=== PATIENT | female | born 1955 | race Caucasian/White ===

== ENCOUNTER 2023-09-02 09:48 | Observation (INO) | payer MEDICARE ==
[2023-09-02 10:27] LABS: #Basophils 0.06 10x3/uL (0.0-0.2); %Basophils 0.6 % (0.0-1.0); %Eosinophils 4.8 % (0.0-10.0); %Lymphocytes 10.8 % (21.0-51.0); %Monocytes 4.4 % (0.0-10.0); %Neutrophils 79.2 % (42.0-75.0); Hematocrit 42.8 % (36.0-47.0); Mean Corpuscular Hemoglobin 33.3 pg (27.0-31.0); Mean Corpuscular Volume 95.1 fL (78.0-98.0); Mean Platelet Volume 8.8 fL (7.4-10.4); Platelet Count 372 10x3/uL (130-400); RBC Distribution Width 12.9 % (11.5-14.5)
[2023-09-02] MEDS ORDERED: Ipratropium/Albuterol 3 ML NEB ONE (10:43)
[2023-09-02] MEDS ORDERED: methylPREDNISolone Sod Succ/PF 125 MG/2 ML VIAL ONE (10:43)
[2023-09-02] MEDS ORDERED: Magnesium 2 GM/50 ML BAG (IN WATER) ONE (10:43)
[2023-09-02 11:17] LABS: Albumin 3.9 g/dL (3.4-4.8); Chloride 99 mmol/L (98-107); Potassium 4.2 mmol/L (3.5-5.1); Sodium 134 mmol/L (136-145)
[2023-09-02 11:18] LABS: Calcium 9.7 mg/dL (7.8-10.44); Glucose 92 mg/dL (80-115)
[2023-09-02 11:19] LABS: Globulin 3.5 g/dL (2.4-3.5); Protein, Total 7.4 g/dL (5.8-8.1)
[2023-09-02 11:20] LABS: Anion Gap 15 mmol/L (10-20); Carbon Dioxide 24 mmol/L (23-31)
[2023-09-02 11:21] LABS: Alkaline Phosphatase 80 U/L (40-110); Bilirubin, Total 0.4 mg/dL (0.2-1.2); Troponin I 0.031 ng/mL (< 0.028)
[2023-09-02 11:22] LABS: Calc. Creatinine Clearance 0 mL/min (70-130); Estimated GFR 96
[2023-09-02 11:23] LABS: BUN (Urea Nitrogen) 7 mg/dL (9.8-20.1)
[2023-09-02 11:24] LABS: ALT (SGPT) 13 U/L (8-55); AST (SGOT) 16 U/L (5-34)
[2023-09-02] MEDS ORDERED: Iopamidol-370 76% 500 ML MDV (1 ML CHARGE) ONE (11:25)
[2023-09-02 14:04] LABS: Troponin I 0.057 ng/mL (< 0.028)
[2023-09-02] MEDS ORDERED: Aspirin Chewable 81 MG TAB ONE (14:28)
[2023-09-02] MEDS ORDERED: Famotidine/PF 20 mg/2ml Vial ONE (14:28)
[2023-09-02] MEDS ORDERED: diphenhydrAMINE 50 MG/ML VIAL ONE (14:28)
[2023-09-02] MEDS ORDERED: Acetaminophen 325 MG TAB PO PRN (17:04)
[2023-09-02] MEDS ORDERED: Ondansetron PF 4 MG/2 ML Vial IVP PRN (17:04)
[2023-09-02 17:53] LABS: Troponin I 0.059 ng/mL (< 0.028)
[2023-09-02 21:30] VITALS: BMI 19.6
[2023-09-02] MEDS: Atorvastatin Calcium 40 MG TAB PO SCH (22:21)
[2023-09-02] MEDS: Metoprolol Tartrate 25 MG TAB PO SCH (22:21)
[2023-09-02] MEDS: methylPREDNISolone Sod Succ 40 MG VIAL IVP SCH (22:21)
[2023-09-02] MEDS: Ipratropium/Albuterol 3 ML NEB NEB SCH (23:29)
[2023-09-03 04:52] LABS: #Basophils Less than 0.03 10x3/uL (0.0-0.2); #Eosinphils Less than 0.03 10x3/uL (0.0-0.7); %Basophils 0.2 % (0.0-1.0); %Lymphocytes 7.9 % (21.0-51.0); %Monocytes 1.7 % (0.0-10.0); %Neutrophils 89.7 % (42.0-75.0); Hematocrit 40.9 % (36.0-47.0); Hemoglobin 14.1 g/dL (12.0-16.0); Mean Corpuscular HGB CONC 34.5 g/dL (32.0-36.0); Mean Corpuscular Hemoglobin 32.6 pg (27.0-31.0); Mean Corpuscular Volume 94.5 fL (78.0-98.0); Mean Platelet Volume 8.6 fL (7.4-10.4); Platelet Count 365 10x3/uL (130-400); RBC Distribution Width 12.9 % (11.5-14.5); Red Blood Cell (RBC) Count 4.33 mill/uL (4.20-5.40)
[2023-09-03 05:21] LABS: Anion Gap 14 mmol/L (10-20); BUN (Urea Nitrogen) 11 mg/dL (9.8-20.1); Calc. Creatinine Clearance 54 mL/min (70-130); Calcium 9.4 mg/dL (7.8-10.44); Carbon Dioxide 22 mmol/L (23-31); Chloride 99 mmol/L (98-107); Estimated GFR 84; Glucose 131 mg/dL (80-115); Potassium 5.1 mmol/L (3.5-5.1); Sodium 130 mmol/L (136-145)
[2023-09-03] MEDS: cefTRIAXone\\ROCEPHIN 1 GM in Sodium Chloride 0.9% 100 ML IVPB SCH (06:26)
[2023-09-03 08:56] VITALS: TEMP 97.9
[2023-09-03] MEDS: Enoxaparin 40 MG (0.4 mL) SYRINGE SC SCH (09:04)
[2023-09-03] MEDS: Aspirin 81 mg Enteric Coated Tablet PO SCH (09:04)
[2023-09-03 11:21] VITALS: BP 122/59
[2023-09-03] MEDS: Losartan 25 MG TAB PO SCH (11:22)
[2023-09-03] MEDS: Benzonatate 100 MG CAP PO PRN (11:22)
[2023-09-03] MEDS ORDERED: Ipratropium Bromide 2.5 ml Neb NEB SCH (13:00)
[2023-09-03] MEDS ORDERED: Mometasone 200 MCG/Formoterol 5 MCG 120 PUFF INHALER INH SCH (18:30)
[2023-09-04] MEDS ORDERED: Losartan 25 MG TAB PO SCH (09:00)
== END 2023-09-03 13:55 | disposition home or self-care (01) ==
LOC: ERS 09:48 → ERHOLD 17:22 → 2SW 19:55
PROVIDERS: ADMIT Internal Medicine; ATTEND Internal Medicine
DX: J44.1 Chronic obstructive pulmonary disease with (acute) exacerbation (principal); J98.01 Acute bronchospasm; R07.89 Other chest pain; R77.8 Other specified abnormalities of plasma proteins; I10 Essential (primary) hypertension; E78.5 Hyperlipidemia, unspecified; F17.210 Nicotine dependence, cigarettes, uncomplicated; F12.90 Cannabis use, unspecified, uncomplicated; Z91.041 Radiographic dye allergy status; Z79.82 Long term (current) use of aspirin
CPT/HCPCS: 36415; 36416; 71045; 71275; 80048; 80053; 83880; 84484; 85025; 93005; 94640; 96372; 96374; 96375; 96376; G0378; J1200; J1650; J2920; J2930; J3475; J7620; Q9967; S0028

== ENCOUNTER 2024-05-05 13:51 | Inpatient (IN) | payer MEDICARE ==
[2024-05-05] MEDS ORDERED: Ipratropium/Albuterol 3 ML NEB NEB PRN (15:10)
[2024-05-05] MEDS ORDERED: Ondansetron PF 4 MG/2 ML Vial IVP PRN (15:10)
[2024-05-05] MEDS ORDERED: Sodium Chloride 0.9% 100 ML ONE (15:57)
[2024-05-05] MEDS ORDERED: Azithromycin 250 MG TAB ONE (15:57)
[2024-05-05] MEDS ORDERED: cefTRIAXone (ROCEPHIN) 1 GM VIAL ONE (15:57)
[2024-05-05 16:01] LABS: Troponin I 0.028 ng/mL (< 0.028)
[2024-05-05] MEDS: cefTRIAXone\\ROCEPHIN 1 GM in Sodium Chloride 0.9% 100 ML IVPB SCH (16:05)
[2024-05-05] MEDS: Azithromycin 250 MG TAB PO SCH (16:05)
[2024-05-05] MEDS ORDERED: Acetaminophen 325 MG TAB ONE (16:46)
[2024-05-05] MEDS ORDERED: Metoprolol Tartrate 25 MG TAB ONE (16:57)
[2024-05-05] MEDS: Acetaminophen 325 MG TAB PO PRN (17:03)
[2024-05-05 18:21] LABS: Troponin I 0.042 ng/mL (< 0.028)
[2024-05-05] MEDS: Ipratropium/Albuterol 3 ML NEB NEB SCH (19:36)
[2024-05-05] MEDS: Budesonide 0.5 MG/2 ML NEB INH SCH (19:37)
[2024-05-05] MEDS: Lactated Ringer's 1,000 ML IV SCH (20:12)
[2024-05-05] MEDS: Metoprolol Tartrate 25 MG TAB PO SCH (20:17)
[2024-05-05 21:14] LABS: Troponin I 0.028 ng/mL (< 0.028)
[2024-05-05] MEDS ORDERED: hydrOXYzine 10 MG TAB PO PRN (21:16)
[2024-05-05] MEDS: Melatonin 3 MG TAB PO SCH (21:26)
[2024-05-05] MEDS: DULoxetine 30 MG CAP PO SCH (21:26)
[2024-05-05] MEDS: Labetalol HCl 100 MG/20 ML VIAL SLOW IVP PRN (22:06)
[2024-05-05 22:29] LABS: Actual Bicarbonate (HCO3a) 26.1 mEq/L (22-28); Base Excess (BEa) -2.8 mEq/L (-2.0 to +3.0); Carboxyhemoglobin (COHb) 0.3 gm% (0.0-3.0); Hematocrit-ABG 40 % (36.0-47.0); Hemoglobin (Hb) 13.7 g/dL (12.0-16.0); O2 Tension (PaO2), arterial 109.2 mmHg (> 80.0); Potassium - ABG Lab 4.21 mmol/L (3.70-5.30); pH, Arterial 7.225 (7.35-7.45)
[2024-05-05 22:30] LABS: CO2 Tension 64.4 mmHg (35.0-45.0); Puncture Site Right Radial artery
[2024-05-05] MEDS: Lorazepam 2 MG/ML VIAL SLOW IVP SCH (22:36)
[2024-05-05] MEDS ORDERED: Morphine 2 MG/ML VIAL SLOW IVP SCH (23:00)
[2024-05-05] MEDS ORDERED: Fentanyl BOLUS 250 ML IVPB PRN (23:15)
[2024-05-05] MEDS ORDERED: Morphine 2 MG/ML VIAL SLOW IVP PRN (23:15)
[2024-05-05] MEDS ORDERED: Ventilator Sedation Protocol 1 EACH FS SCH (23:15)
[2024-05-05] MEDS ORDERED: Propofol BOLUS 1,000 MG/100 ML VIAL IV PRN (23:15)
[2024-05-05] MEDS: Rocuronium Bromide 50 MG/5 ML VIAL IVP SCH (23:15)
[2024-05-05] MEDS: Etomidate 40 MG (20 mL) VIAL IVP SCH (23:15)
[2024-05-05] MEDS ORDERED: Rocuronium Bromide 10 MG/ML (10ML VIAL) ONE (23:16)
[2024-05-05] MEDS ORDERED: Etomidate 40 MG (20 mL) VIAL ONE (23:16)
[2024-05-05] MEDS: Propofol 1,000 MG/100 ML VIAL IV PRN (23:36)
[2024-05-06] MEDS: methylPREDNISolone Sod Succ 40 MG VIAL IVP SCH (00:29)
[2024-05-06 00:48] LABS: Actual Bicarbonate (HCO3a) 25.5 mEq/L (22-28); Base Excess (BEa) -5.2 mEq/L (-2.0 to +3.0); Calcium, Ionized (arterial) 1.22 mmol/L (1.12-1.30); Carboxyhemoglobin (COHb) 0.6 gm% (0.0-3.0); Hematocrit-ABG 41 % (36.0-47.0); O2 Tension (PaO2), arterial 71.4 mmHg (> 80.0); Potassium - ABG Lab 4.02 mmol/L (3.70-5.30)
[2024-05-06 00:49] LABS: ALV-art Gradient 117.925 mmHg (0-20); Puncture Site Right Brachial art
[2024-05-06] MEDS: Lorazepam 2 MG/ML VIAL SLOW IVP PRN (02:18)
[2024-05-06] MEDS: Fentanyl CADD 100 ML IV SCH (02:51)
[2024-05-06 03:21] LABS: #Basophils Less than 0.03 10x3/uL (0.0-0.2); #Eosinophils Less than 0.03 10x3/uL (0.0-0.7); %Basophils 0.1 % (0.0-1.0); %Eosinophils 0.1 % (0.0-10.0); %Lymphocytes 3.5 % (21.0-51.0); %Monocytes 3.5 % (0.0-10.0); %Neutrophils 92.3 % (42.0-75.0); Hematocrit 34.9 % (36.0-47.0); Hemoglobin 11.7 g/dL (12.0-16.0); Mean Corpuscular HGB CONC 33.5 g/dL (32.0-36.0); Mean Corpuscular Hemoglobin 32.6 pg (27.0-31.0); Mean Corpuscular Volume 97.2 fL (78.0-98.0); Mean Platelet Volume 8.7 fL (7.4-10.4); Platelet Count 243 10x3/uL (130-400); RBC Distribution Width 14.5 % (11.5-14.5); Red Blood Cell (RBC) Count 3.59 mill/uL (4.20-5.40)
[2024-05-06] MEDS: NOREPINEPHRINE 8 MG/250 ML-D5W 250 ML IVPB SCH (03:25)
[2024-05-06] MEDS: Vecuronium 10 MG VIAL IVP PRN (03:25)
[2024-05-06 03:35] LABS: Actual Bicarbonate (HCO3a) 26.4 mEq/L (22-28); Base Excess (BEa) -3.9 mEq/L (-2.0 to +3.0); Calcium, Ionized (arterial) 1.22 mmol/L (1.12-1.30); Carboxyhemoglobin (COHb) 0.6 gm% (0.0-3.0); Hematocrit-ABG 38 % (36.0-47.0); Hemoglobin (Hb) 12.9 g/dL (12.0-16.0); O2 Tension (PaO2), arterial 96.2 mmHg (> 80.0); Potassium - ABG Lab 4.19 mmol/L (3.70-5.30)
[2024-05-06 03:36] LABS: CO2 Tension 75.9 mmHg (35.0-45.0); Puncture Site Right Brachial art; pH, Arterial 7.159 (7.35-7.45)
[2024-05-06 03:37] LABS: ALV-art Gradient 165.425 mmHg (0-20)
[2024-05-06] MEDS: Albumin 25% 25 GM (100 mL) BOT IVPB SCH (03:41)
[2024-05-06 03:48] LABS: Phosphorus 4.4 mg/dL (2.3-4.7)
[2024-05-06 03:51] LABS: ALT (SGPT) 15 U/L (8-55); AST (SGOT) 29 U/L (5-34); Albumin 3.3 g/dL (3.4-4.8); Alkaline Phosphatase 72 U/L (40-110); Anion Gap 13 mmol/L (10-20); BUN (Urea Nitrogen) 12 mg/dL (9.8-20.1); Bilirubin, Total 0.6 mg/dL (0.2-1.2); Calc. Creatinine Clearance 66 mL/min (70-130); Calcium 8.3 mg/dL (7.8-10.44); Carbon Dioxide 25 mmol/L (23-31); Chloride 93 mmol/L (98-107); Estimated GFR 97; Globulin 3.4 g/dL (2.4-3.5); Glucose 172 mg/dL (80-115); Magnesium 2.3 mg/dL (1.6-2.6); Protein, Total 6.7 g/dL (5.8-8.1); Sodium 127 mmol/L (136-145)
[2024-05-06] MEDS: Vecuronium 10 MG VIAL ONE (05:14)
[2024-05-06 07:53] LABS: Actual Bicarbonate (HCO3a) 25.9 mEq/L (22-28); Base Excess (BEa) -2.7 mEq/L (-2.0 to +3.0); Calcium, Ionized (arterial) 1.18 mmol/L (1.12-1.30); Carboxyhemoglobin (COHb) 0.9 gm% (0.0-3.0); Hematocrit-ABG 36 % (36.0-47.0); Hemoglobin (Hb) 12.2 g/dL (12.0-16.0); Potassium - ABG Lab 4.02 mmol/L (3.70-5.30); pH, Arterial 7.227 (7.35-7.45)
[2024-05-06 07:54] LABS: CO2 Tension 63.8 mmHg (35.0-45.0); Puncture Site Left Radial artery
[2024-05-06] MEDS ORDERED: predniSONE 20 MG TAB PO SCH (08:00)
[2024-05-06] MEDS: Azithromycin 250 MG TAB PO SCH (08:59)
[2024-05-06] MEDS: Enoxaparin 30 MG (0.3 mL) SYRINGE SC SCH (08:59)
[2024-05-06] MEDS: Famotidine/PF 20 mg/2ml Vial SLOW IVP SCH ×2 (08:59→20:20)
[2024-05-06] MEDS ORDERED: DULoxetine 30 MG CAP PO SCH (09:00)
[2024-05-06] MEDS: Oseltamivir 75 MG CAP PO SCH (09:02)
[2024-05-06] MEDS: Ipratropium/Albuterol 3 ML NEB NEB SCH (10:33)
[2024-05-06] MEDS: Lactated Ringer's 1,000 ML IV SCH (11:58)
[2024-05-06] MEDS ORDERED: Acetaminophen 650 MG/20.3 ML UDCUP PO PRN (18:15)
[2024-05-06] MEDS: DULoxetine 30 MG CAP PER TUBE SCH (20:20)
[2024-05-06] MEDS: Oseltamivir 75 MG CAP PER TUBE SCH (20:21)
[2024-05-06] MEDS: Sterile Water 10 ML VIAL FS PRN (21:14)
[2024-05-07 05:39] LABS: ALT (SGPT) 13 U/L (8-55); AST (SGOT) 22 U/L (5-34); Albumin 3.5 g/dL (3.4-4.8); Alkaline Phosphatase 57 U/L (40-110); Anion Gap 16 mmol/L (10-20); BUN (Urea Nitrogen) 22 mg/dL (9.8-20.1); Bilirubin, Total 0.3 mg/dL (0.2-1.2); Calc. Creatinine Clearance 55 mL/min (70-130); Calcium 8.7 mg/dL (7.8-10.44); Carbon Dioxide 25 mmol/L (23-31); Chloride 96 mmol/L (98-107); Estimated GFR 87; Globulin 3.2 g/dL (2.4-3.5); Glucose 111 mg/dL (80-115); Magnesium 2.5 mg/dL (1.6-2.6); Protein, Total 6.7 g/dL (5.8-8.1); Sodium 132 mmol/L (136-145)
[2024-05-07 06:34] LABS: #Basophils Less than 0.03 10x3/uL (0.0-0.2); #Eosinophils Less than 0.03 10x3/uL (0.0-0.7); %Basophils 0.1 % (0.0-1.0); %Lymphocytes 6.3 % (21.0-51.0); %Monocytes 7.2 % (0.0-10.0); %Neutrophils 85.8 % (42.0-75.0); Hematocrit 39.2 % (36.0-47.0); Hemoglobin 12.5 g/dL (12.0-16.0); Mean Corpuscular HGB CONC 31.9 g/dL (32.0-36.0); Mean Corpuscular Hemoglobin 32.1 pg (27.0-31.0); Mean Corpuscular Volume 100.8 fL (78.0-98.0); Mean Platelet Volume 9.7 fL (7.4-10.4); Platelet Count 242 10x3/uL (130-400); RBC Distribution Width 15.1 % (11.5-14.5); Red Blood Cell (RBC) Count 3.89 mill/uL (4.20-5.40)
[2024-05-07 07:21] LABS: Base Excess (BEa) -1.6 mEq/L (-2.0 to +3.0); Calcium, Ionized (arterial) 1.21 mmol/L (1.12-1.30); Carboxyhemoglobin (COHb) 0.4 gm% (0.0-3.0); Hematocrit-ABG 36 % (36.0-47.0); Hemoglobin (Hb) 12.1 g/dL (12.0-16.0); O2 Tension (PaO2), arterial 100.5 mmHg (> 80.0); Potassium - ABG Lab 4.26 mmol/L (3.70-5.30); pH, Arterial 7.277 (7.35-7.45)
[2024-05-07 07:23] LABS: Puncture Site Left Radial artery
[2024-05-07] MEDS: Azithromycin 250 MG TAB PER TUBE SCH (08:29)
[2024-05-07] MEDS: Enoxaparin 40 MG (0.4 mL) SYRINGE SC SCH (08:29)
[2024-05-08 05:07] LABS: #Basophils Less than 0.03 10x3/uL (0.0-0.2); #Eosinophils Less than 0.03 10x3/uL (0.0-0.7); %Basophils 0.1 % (0.0-1.0); %Lymphocytes 3.6 % (21.0-51.0); %Monocytes 3.9 % (0.0-10.0); %Neutrophils 91.8 % (42.0-75.0); Hematocrit 34.4 % (36.0-47.0); Hemoglobin 11.3 g/dL (12.0-16.0); Mean Corpuscular HGB CONC 32.8 g/dL (32.0-36.0); Mean Corpuscular Hemoglobin 32.2 pg (27.0-31.0); Platelet Count 247 10x3/uL (130-400); RBC Distribution Width 15.4 % (11.5-14.5); Red Blood Cell (RBC) Count 3.51 mill/uL (4.20-5.40)
[2024-05-08 06:09] LABS: Anion Gap 8 mmol/L (10-20); BUN (Urea Nitrogen) 21 mg/dL (9.8-20.1); Calc. Creatinine Clearance 72 mL/min (70-130); Calcium 8.3 mg/dL (7.8-10.44); Carbon Dioxide 30 mmol/L (23-31); Chloride 99 mmol/L (98-107); Estimated GFR 99; Glucose 130 mg/dL (80-115); Potassium 4.5 mmol/L (3.5-5.1); Sodium 132 mmol/L (136-145)
[2024-05-08 07:22] LABS: Actual Bicarbonate (HCO3a) 28.9 mEq/L (22-28); Base Excess (BEa) 0.5 mEq/L (-2.0 to +3.0); CO2 Tension 65.7 mmHg (35.0-45.0); Calcium, Ionized (arterial) 1.22 mmol/L (1.12-1.30); Carboxyhemoglobin (COHb) 0.3 gm% (0.0-3.0); Hematocrit-ABG 36 % (36.0-47.0); Hemoglobin (Hb) 12.1 g/dL (12.0-16.0); O2 Tension (PaO2), arterial 102.7 mmHg (> 80.0); Potassium - ABG Lab 4.48 mmol/L (3.70-5.30); pH, Arterial 7.261 (7.35-7.45)
[2024-05-08 07:23] LABS: ALV-art Gradient 100.375 mmHg (0-20); Puncture Site Left Radial artery
[2024-05-08] MEDS ORDERED: Lidocaine 1% PF 5 ML VIAL ONE (12:55)
[2024-05-08] MEDS ORDERED: PROPOFOL 20 ML ONE (12:55)
[2024-05-09 07:55] LABS: Base Excess (BEa) 2.5 mEq/L (-2.0 to +3.0); Calcium, Ionized (arterial) 1.23 mmol/L (1.12-1.30); Carboxyhemoglobin (COHb) 0.2 gm% (0.0-3.0); Hematocrit-ABG 34 % (36.0-47.0); Hemoglobin (Hb) 11.6 g/dL (12.0-16.0); O2 Tension (PaO2), arterial 97.6 mmHg (> 80.0); Potassium - ABG Lab 4.91 mmol/L (3.70-5.30); pH, Arterial 7.268 (7.35-7.45)
[2024-05-09 07:57] LABS: CO2 Tension 69.4 mmHg (35.0-45.0)
[2024-05-09 07:58] LABS: Puncture Site Left Radial artery
[2024-05-10 04:08] LABS: #Basophils Less than 0.03 10x3/uL (0.0-0.2); #Eosinophils Less than 0.03 10x3/uL (0.0-0.7); %Basophils 0.1 % (0.0-1.0); %Monocytes 8.6 % (0.0-10.0); %Neutrophils 80.5 % (42.0-75.0); Hematocrit 31.1 % (36.0-47.0); Hemoglobin 10.4 g/dL (12.0-16.0); Mean Corpuscular HGB CONC 33.4 g/dL (32.0-36.0); Mean Corpuscular Volume 95.7 fL (78.0-98.0); Mean Platelet Volume 9.1 fL (7.4-10.4); Platelet Count 217 10x3/uL (130-400); RBC Distribution Width 15.5 % (11.5-14.5); Red Blood Cell (RBC) Count 3.25 mill/uL (4.20-5.40)
[2024-05-10 04:46] LABS: Anion Gap 10 mmol/L (10-20); BUN (Urea Nitrogen) 31 mg/dL (9.8-20.1); Calc. Creatinine Clearance 87 mL/min (70-130); Calcium 8.3 mg/dL (7.8-10.44); Carbon Dioxide 30 mmol/L (23-31); Chloride 101 mmol/L (98-107); Estimated GFR 103; Glucose 129 mg/dL (80-115); Potassium 4.7 mmol/L (3.5-5.1); Sodium 136 mmol/L (136-145)
[2024-05-10] MEDS: hydrALAZINE 20 MG/ML VIAL SLOW IVP PRN (10:16)
[2024-05-10] MEDS: Dexmedetomidine In 0.9 % NaCl 100 ML IV SCH (12:54)
[2024-05-10 13:29] LABS: CO2 Tension 76.7 mmHg (35.0-45.0)
[2024-05-10] MEDS: Metoprolol Tartrate 25 MG TAB PER TUBE SCH (21:23)
[2024-05-11] MEDS: Haloperidol Lactate 5 MG/ML VIAL IM SCH (09:34)
[2024-05-11] MEDS: Hydrochlorothiazide 25 MG TAB PER TUBE SCH (13:52)
[2024-05-12] MEDS: Hydrochlorothiazide 25 MG TAB PER TUBE SCH (08:10)
[2024-05-12 08:29] LABS: #Basophils Less than 0.03 10x3/uL (0.0-0.2); #Eosinophils Less than 0.03 10x3/uL (0.0-0.7); %Basophils 0.2 % (0.0-1.0); %Eosinophils 0.1 % (0.0-10.0); %Lymphocytes 12.5 % (21.0-51.0); %Neutrophils 77.3 % (42.0-75.0); Hematocrit 34.2 % (36.0-47.0); Hemoglobin 11.7 g/dL (12.0-16.0); Mean Corpuscular HGB CONC 34.2 g/dL (32.0-36.0); Mean Corpuscular Hemoglobin 32.2 pg (27.0-31.0); Mean Corpuscular Volume 94.2 fL (78.0-98.0); Mean Platelet Volume 9.6 fL (7.4-10.4); Platelet Count 240 10x3/uL (130-400); RBC Distribution Width 14.8 % (11.5-14.5); Red Blood Cell (RBC) Count 3.63 mill/uL (4.20-5.40)
[2024-05-12 08:47] LABS: ALT (SGPT) 21 U/L (8-55); AST (SGOT) 24 U/L (5-34); Albumin 2.1 g/dL (3.4-4.8); Alkaline Phosphatase 34 U/L (40-110); Anion Gap 8 mmol/L (10-20); BUN (Urea Nitrogen) 25 mg/dL (9.8-20.1); Bilirubin, Total 0.2 mg/dL (0.2-1.2); Calc. Creatinine Clearance 210 mL/min (70-130); Calcium 8.2 mg/dL (7.8-10.44); Carbon Dioxide 30 mmol/L (23-31); Chloride 97 mmol/L (98-107); Estimated GFR 105; Globulin 3.1 g/dL (2.4-3.5); Glucose 108 mg/dL (80-115); Potassium 4.2 mmol/L (3.5-5.1); Protein, Total 5.2 g/dL (5.8-8.1); Sodium 131 mmol/L (136-145)
[2024-05-12] MEDS: Lactated Ringer's 1,000 ML IV SCH (11:03)
[2024-05-12] MEDS: Ipratropium/Albuterol 3 ML NEB NEB SCH (14:47)
[2024-05-12] MEDS: Dexmedetomidine In 0.9 % NaCl 100 ML IVPB SCH (17:25)
[2024-05-12] MEDS: Acetaminophen 650 MG/20.3 ML UDCUP PER TUBE PRN (20:42)
[2024-05-12] MEDS: hydrOXYzine 10 MG TAB PER TUBE PRN (20:42)
[2024-05-12] MEDS: Famotidine 20 MG TAB PO SCH (20:42)
[2024-05-13 04:23] LABS: #Basophils Less than 0.03 10x3/uL (0.0-0.2); #Eosinophils Less than 0.03 10x3/uL (0.0-0.7); %Basophils 0.1 % (0.0-1.0); %Lymphocytes 7.6 % (21.0-51.0); %Monocytes 4.1 % (0.0-10.0); %Neutrophils 87.6 % (42.0-75.0); Hematocrit 35.4 % (36.0-47.0); Hemoglobin 12.4 g/dL (12.0-16.0); Mean Corpuscular Hemoglobin 32.2 pg (27.0-31.0); Mean Corpuscular Volume 91.9 fL (78.0-98.0); Mean Platelet Volume 9.4 fL (7.4-10.4); Platelet Count 328 10x3/uL (130-400); RBC Distribution Width 14.7 % (11.5-14.5); Red Blood Cell (RBC) Count 3.85 mill/uL (4.20-5.40)
[2024-05-13 04:52] LABS: ALT (SGPT) 24 U/L (8-55); AST (SGOT) 26 U/L (5-34); Albumin 2.4 g/dL (3.4-4.8); Alkaline Phosphatase 43 U/L (40-110); Anion Gap 11 mmol/L (10-20); BUN (Urea Nitrogen) 23 mg/dL (9.8-20.1); Bilirubin, Total 0.5 mg/dL (0.2-1.2); Calc. Creatinine Clearance 201 mL/min (70-130); Calcium 8.3 mg/dL (7.8-10.44); Carbon Dioxide 30 mmol/L (23-31); Chloride 96 mmol/L (98-107); Estimated GFR 104; Glucose 93 mg/dL (80-115); Protein, Total 5.4 g/dL (5.8-8.1); Sodium 133 mmol/L (136-145)
[2024-05-13] MEDS: Ketorolac Tromethamine 30 MG (1 mL) VIAL IVP SCH (05:35)
[2024-05-13] MEDS: methylPREDNISolone Sod Succ 40 MG VIAL IVP SCH (11:32)
[2024-05-14 06:02] LABS: #Basophils 0.03 10x3/uL (0.0-0.2); #Eosinophils Less than 0.03 10x3/uL (0.0-0.7); %Basophils 0.2 % (0.0-1.0); %Eosinophils 0.1 % (0.0-10.0); %Lymphocytes 5.7 % (21.0-51.0); %Monocytes 6.4 % (0.0-10.0); %Neutrophils 86.3 % (42.0-75.0); Hematocrit 35.1 % (36.0-47.0); Mean Corpuscular HGB CONC 34.2 g/dL (32.0-36.0); Mean Corpuscular Volume 96.4 fL (78.0-98.0); Mean Platelet Volume 9.2 fL (7.4-10.4); Platelet Count 261 10x3/uL (130-400); RBC Distribution Width 14.5 % (11.5-14.5); Red Blood Cell (RBC) Count 3.64 mill/uL (4.20-5.40)
[2024-05-14 06:21] LABS: ALT (SGPT) 24 U/L (8-55); AST (SGOT) 23 U/L (5-34); Albumin 2.2 g/dL (3.4-4.8); Alkaline Phosphatase 38 U/L (40-110); Anion Gap 12 mmol/L (10-20); BUN (Urea Nitrogen) 29 mg/dL (9.8-20.1); Bilirubin, Total 0.6 mg/dL (0.2-1.2); Calc. Creatinine Clearance 120 mL/min (70-130); Calcium 7.9 mg/dL (7.8-10.44); Carbon Dioxide 25 mmol/L (23-31); Chloride 100 mmol/L (98-107); Estimated GFR 105; Globulin 2.8 g/dL (2.4-3.5); Glucose 108 mg/dL (80-115); Potassium 3.9 mmol/L (3.5-5.1); Sodium 133 mmol/L (136-145)
[2024-05-14] MEDS ORDERED: Lactated Ringer's 1,000 ML IV SCH (06:48)
[2024-05-14] MEDS: Famotidine/PF 20 mg/2ml Vial SLOW IVP SCH (08:43)
[2024-05-14] MEDS: Dextrose 5 % And 0.9 % NaCl 1,000 ML IV SCH (08:52)
[2024-05-14] MEDS: Labetalol HCl 100 MG/20 ML VIAL SLOW IVP PRN (10:43)
[2024-05-14] MEDS: Morphine 2 MG/ML VIAL SLOW IVP PRN (12:24)
[2024-05-15] MEDS: Metoprolol Tartrate 5 MG (5 mL) VIAL IVP SCH (06:17)
[2024-05-15 08:54] LABS: #Basophils 0.03 10x3/uL (0.0-0.2); #Eosinophils Less than 0.03 10x3/uL (0.0-0.7); %Basophils 0.2 % (0.0-1.0); %Lymphocytes 1.7 % (21.0-51.0); %Monocytes 4.8 % (0.0-10.0); %Neutrophils 92.6 % (42.0-75.0); Hematocrit 35.8 % (36.0-47.0); Hemoglobin 11.8 g/dL (12.0-16.0); Mean Corpuscular Hemoglobin 31.9 pg (27.0-31.0); Mean Corpuscular Volume 96.8 fL (78.0-98.0); Mean Platelet Volume 9.1 fL (7.4-10.4); Platelet Count 318 10x3/uL (130-400); RBC Distribution Width 14.5 % (11.5-14.5)
[2024-05-15 09:20] LABS: ALT (SGPT) 46 U/L (8-55); AST (SGOT) 44 U/L (5-34); Albumin 2.6 g/dL (3.4-4.8); Alkaline Phosphatase 59 U/L (40-110); Anion Gap 12 mmol/L (10-20); BUN (Urea Nitrogen) 27 mg/dL (9.8-20.1); Bilirubin, Total 0.6 mg/dL (0.2-1.2); Calc. Creatinine Clearance 112 mL/min (70-130); Calcium 7.8 mg/dL (7.8-10.44); Carbon Dioxide 24 mmol/L (23-31); Chloride 104 mmol/L (98-107); Estimated GFR 103; Globulin 2.9 g/dL (2.4-3.5); Glucose 159 mg/dL (80-115); Potassium 3.6 mmol/L (3.5-5.1); Protein, Total 5.5 g/dL (5.8-8.1); Sodium 136 mmol/L (136-145)
[2024-05-15] MEDS: cloNIDine 0.2mg/24 Hour PATCH TD SCH (10:04)
[2024-05-15] MEDS: Labetalol HCl 100 MG/20 ML VIAL SLOW IVP PRN (11:41)
[2024-05-15] MEDS: niCARdipine 25 MG in Sodium Chloride 0.9% 250 ML 250 ML IVPB SCH (14:45)
[2024-05-15] MEDS: hydrOXYzine 25 MG TAB PER TUBE PRN (15:13)
[2024-05-15] MEDS: methylPREDNISolone Sod Succ 40 MG VIAL IVP SCH (21:13)
[2024-05-15] MEDS: Amlodipine 5 MG TAB PO SCH (22:11)
[2024-05-15] MEDS: ALPRAZolam 0.25 MG TAB PO PRN (22:11)
[2024-05-16] MEDS: Glycopyrrolate 0.4 MG/ 2 ML VIAL SLOW IVP PRN (00:46)
[2024-05-16] MEDS: Scopolamine 1 mg/72 hour Patch TD SCH (00:46)
[2024-05-16 05:14] LABS: #Basophils 0.03 10x3/uL (0.0-0.2); #Eosinophils Less than 0.03 10x3/uL (0.0-0.7); %Basophils 0.1 % (0.0-1.0); %Lymphocytes 1.2 % (21.0-51.0); %Monocytes 6.1 % (0.0-10.0); %Neutrophils 91.8 % (42.0-75.0); Hematocrit 37.1 % (36.0-47.0); Hemoglobin 12.7 g/dL (12.0-16.0); Mean Corpuscular HGB CONC 34.2 g/dL (32.0-36.0); Mean Corpuscular Hemoglobin 32.5 pg (27.0-31.0); Mean Corpuscular Volume 94.9 fL (78.0-98.0); Mean Platelet Volume 9.9 fL (7.4-10.4); Platelet Count 287 10x3/uL (130-400); RBC Distribution Width 14.6 % (11.5-14.5); Red Blood Cell (RBC) Count 3.91 mill/uL (4.20-5.40)
[2024-05-16 05:16] LABS: ALT (SGPT) 42 U/L (8-55); AST (SGOT) 24 U/L (5-34); Albumin 2.8 g/dL (3.4-4.8); Alkaline Phosphatase 60 U/L (40-110); Anion Gap 12 mmol/L (10-20); BUN (Urea Nitrogen) 21 mg/dL (9.8-20.1); Bilirubin, Total 0.6 mg/dL (0.2-1.2); Calc. Creatinine Clearance 128 mL/min (70-130); Calcium 8.3 mg/dL (7.8-10.44); Carbon Dioxide 26 mmol/L (23-31); Chloride 104 mmol/L (98-107); Estimated GFR 106; Globulin 3.2 g/dL (2.4-3.5); Glucose 168 mg/dL (80-115); Potassium 3.1 mmol/L (3.5-5.1); Sodium 139 mmol/L (136-145)
[2024-05-16] MEDS ORDERED: Propofol BOLUS 1,000 MG/100 ML VIAL IV PRN (06:45)
[2024-05-16] MEDS ORDERED: Fentanyl BOLUS 250 ML IVPB PRN (06:45)
[2024-05-16] MEDS ORDERED: Morphine 2 MG/ML VIAL SLOW IVP PRN (06:45)
[2024-05-16] MEDS ORDERED: Fentanyl CADD 100 ML IV SCH (06:45)
[2024-05-16] MEDS ORDERED: DISCONTINUE PREVIOUS NARCOTIC PAIN MEDICATIONS AND BENZODIAZEPINES FS SCH (06:45)
[2024-05-16] MEDS ORDERED: Ventilator Sedation Protocol 1 EACH FS SCH (06:45)
[2024-05-16] MEDS ORDERED: Lorazepam 2 MG/ML VIAL SLOW IVP PRN (06:45)
[2024-05-16] MEDS: Propofol 1,000 MG/100 ML VIAL IV PRN (06:51)
[2024-05-16 07:13] LABS: Actual Bicarbonate (HCO3a) 27.7 mEq/L (22-28); Base Excess (BEa) -0.7 mEq/L (-2.0 to +3.0); Calcium, Ionized (arterial) 1.17 mmol/L (1.12-1.30); Carboxyhemoglobin (COHb) 0.2 gm% (0.0-3.0); Hematocrit-ABG 36 % (36.0-47.0); Hemoglobin (Hb) 12.2 g/dL (12.0-16.0); O2 Tension (PaO2), arterial 125.6 mmHg (> 80.0); Potassium - ABG Lab 2.96 mmol/L (3.70-5.30); pH, Arterial 7.253 (7.35-7.45)
[2024-05-16 07:15] LABS: ALV-art Gradient 150.775 mmHg (0-20); CO2 Tension 64.1 mmHg (35.0-45.0); Puncture Site Left Radial artery
[2024-05-16] MEDS ORDERED: niCARdipine 25 MG in Sodium Chloride 0.9% 250 ML 250 ML IVPB SCH (07:15)
[2024-05-16 07:24] LABS: Magnesium 1.9 mg/dL (1.6-2.6)
[2024-05-16] MEDS: Potassium Chloride 20 MEQ in Premix 1 BAG IVPB SCH (07:50)
[2024-05-16] MEDS: Lactated Ringer's 1,000 ML IV SCH ×2 (07:50→08:47)
[2024-05-16] MEDS: methylPREDNISolone Sod Succ 40 MG VIAL IVP SCH ×3 (08:24→13:30)
[2024-05-16] MEDS: Magnesium 2 GM/50 ML(in water) 2 GM in Premix 1 BAG IVPB SCH (08:28)
[2024-05-16] MEDS: Amlodipine 5 MG TAB PO SCH (08:29)
[2024-05-16] MEDS: Piperacillin/Tazobactam 3.375 GM in Sodium Chloride 0.9% 100 ML IVPB SCH ×2 (10:34→13:29)
[2024-05-16] MEDS ORDERED: Senokot 8.6 MG TAB PO PRN (11:16)
[2024-05-16 11:23] VITALS: BMI 24.0
[2024-05-16] MEDS ORDERED: Polyethylene Glycol 3350 17 GM Packet PO SCH (11:30)
[2024-05-16] MEDS ORDERED: Pantoprazole 40 MG VIAL IVP SCH (11:30)
[2024-05-16] MEDS ORDERED: Piperacillin/Tazobactam 4.5 GM in Sodium Chloride 0.9% 100 ML IVPB SCH (12:00)
[2024-05-16] MEDS: Vecuronium 10 MG VIAL IVP PRN (12:12)
[2024-05-16] MEDS: NOREPINEPHRINE 8 MG/250 ML-D5W 250 ML IVPB SCH (14:45)
[2024-05-16] MEDS: Phenylephrine 40 MG/NS 250 ML 250 ML IVPB SCH (16:32)
[2024-05-16] MEDS: Furosemide 40 MG (4 mL) VIAL ONE (16:40)
[2024-05-16] MEDS: Furosemide 40 MG (4 mL) VIAL SLOW IVP SCH (16:40)
[2024-05-16] MEDS: Albumin 5% 500 ML ONE (16:58)
[2024-05-16] MEDS: Albumin 5% 25 GM (500 mL) BOT IVPB SCH ×2 (17:00→22:53)
[2024-05-16] MEDS: Vasopressin 20 UNITS in Sodium Chloride 0.9% 50 ML IV SCH (17:01)
[2024-05-16 17:02] LABS: Actual Bicarbonate (HCO3a) 22.6 mEq/L (22-28); Base Excess (BEa) -7.1 mEq/L (-2.0 to +3.0); Calcium, Ionized (arterial) 1.19 mmol/L (1.12-1.30); Carboxyhemoglobin (COHb) 0.7 gm% (0.0-3.0); Hematocrit-ABG 46 % (36.0-47.0); Hemoglobin (Hb) 15.5 g/dL (12.0-16.0); O2 Tension (PaO2), arterial 86.3 mmHg (> 80.0); Potassium - ABG Lab 3.38 mmol/L (3.70-5.30)
[2024-05-16 17:06] LABS: ALV-art Gradient 547.575 mmHg (0-20); CO2 Tension 63.3 mmHg (35.0-45.0); Puncture Site Left Radial artery
[2024-05-16] MEDS: Vancomycin 1.5 GRAM/300 ML BAG 1.5 GM in Premix 1 BAG IVPB SCH (18:20)
[2024-05-16] MEDS: Sodium Bicarbonate 150 MEQ in Dextrose 5% in Water 1,000 ML IV SCH (19:04)
[2024-05-16] MEDS ORDERED: Vancomycin 1.5 GM in Sodium Chloride 0.9% 250 ML 300 ML IVPB SCH (21:00)
[2024-05-16] MEDS ORDERED: Vancomycin (BATCH) 1.25 GM in Premix 1 BAG IVPB SCH (21:00)
[2024-05-16] MEDS: Furosemide 100 MG (10 mL) VIAL SLOW IVP SCH (22:01)
[2024-05-16 22:04] LABS: Actual Bicarbonate (HCO3a) 23.9 mEq/L (22-28); Base Excess (BEa) -7.4 mEq/L (-2.0 to +3.0); Calcium, Ionized (arterial) 1.17 mmol/L (1.12-1.30); Carboxyhemoglobin (COHb) 0.6 gm% (0.0-3.0); Hematocrit-ABG 41 % (36.0-47.0); Hemoglobin (Hb) 13.8 g/dL (12.0-16.0); O2 Tension (PaO2), arterial 63.3 mmHg (> 80.0); Potassium - ABG Lab 3.22 mmol/L (3.70-5.30)
[2024-05-16 22:06] LABS: CO2 Tension 78.8 mmHg (35.0-45.0); pH, Arterial 7.099 (7.35-7.45)
[2024-05-16 22:07] LABS: Puncture Site Left Brachial artery
[2024-05-16] MEDS: Albumin 25% 25 GM (100 mL) BOT IVPB SCH (22:53)
[2024-05-16] MEDS: Metolazone 5 MG TAB PO SCH (22:53)
[2024-05-16 23:31] LABS: Lactic Acid 3.24 mmol/L (0.50-2.20)
[2024-05-16 23:40] LABS: ALT (SGPT) 13 U/L (Less than 34); AST (SGOT) 15 U/L (11-34); Albumin 2.2 g/dL (3.1-4.5); Alkaline Phosphatase 40 U/L (40-110); Anion Gap 11 mmol/L (10-20); BUN (Urea Nitrogen) 22 mg/dL (9.8-20.1); Bilirubin, Total 0.3 mg/dL (0.3-1.2); Calc. Creatinine Clearance 83 mL/min (70-130); Carbon Dioxide 23 mmol/L (23-31); Chloride 105 mmol/L (98-107); Estimated GFR 97; Globulin 1.6 g/dL (2.4-3.5); Glucose 148 mg/dL (80-115); Magnesium 2.1 mg/dL (1.6-2.6); Potassium 3.3 mmol/L (3.5-5.1); Protein, Total 3.8 g/dL (5.8-8.1); Sodium 136 mmol/L (136-145)
[2024-05-16 23:59] LABS: Actual Bicarbonate (HCO3a) 22.2 mEq/L (22-28); Base Excess (BEa) -6.7 mEq/L (-2.0 to +3.0); CO2 Tension 59.7 mmHg (35.0-45.0); Calcium, Ionized (arterial) 1.09 mmol/L (1.12-1.30); Carboxyhemoglobin (COHb) 0.2 gm% (0.0-3.0); Hematocrit-ABG 38 % (36.0-47.0); Hemoglobin (Hb) 12.8 g/dL (12.0-16.0); O2 Tension (PaO2), arterial 85.2 mmHg (> 80.0); Potassium - ABG Lab 3.25 mmol/L (3.70-5.30)
[2024-05-17 00:03] LABS: pH, Arterial 7.188 (7.35-7.45)
[2024-05-17 00:04] LABS: ALV-art Gradient 553.175 mmHg (0-20); Puncture Site LINE
[2024-05-17] MEDS: Calcium Chloride 13.6 MEQ in Sodium Chloride 0.9% 100 ML IVPB SCH (00:07)
[2024-05-17 01:58] VITALS: BP 124/71
[2024-05-17 05:12] LABS: Vancomycin, Random 22.6 ug/mL (See Comment)
[2024-05-17 05:16] LABS: ALT (SGPT) 13 U/L (Less than 34); AST (SGOT) 23 U/L (11-34); Albumin 2.3 g/dL (3.1-4.5); Alkaline Phosphatase 49 U/L (40-110); Anion Gap 14 mmol/L (10-20); BUN (Urea Nitrogen) 26 mg/dL (9.8-20.1); Bilirubin, Total 0.4 mg/dL (0.3-1.2); Calc. Creatinine Clearance 71 mL/min (70-130); Calcium 7.4 mg/dL (7.8-10.44); Carbon Dioxide 25 mmol/L (23-31); Chloride 103 mmol/L (98-107); Estimated GFR 88; Globulin 1.6 g/dL (2.4-3.5); Glucose 130 mg/dL (80-115); Potassium 3.2 mmol/L (3.5-5.1); Protein, Total 3.9 g/dL (5.8-8.1); Sodium 139 mmol/L (136-145)
[2024-05-17 05:18] LABS: Lymphocytes 20 % (21-51); Macrocytosis SLIGHT = 6-15 cells (100X) (0-5/hpf); Monocytes 30 % (0-10); Neutrophil 50 % (42-75); Plasma Cells 0 % (0-0); Platelet Adequacy Comment Appears Decreased; Total Cell Count 10
[2024-05-17 05:29] VITALS: BMI 24.5
[2024-05-17 05:41] LABS: #Basophils Less than 0.03 10x3/uL (0.0-0.2); #Eosinophils Less than 0.03 10x3/uL (0.0-0.7); %Basophils 0.8 % (0.0-1.0); %Lymphocytes 7.6 % (21.0-51.0); %Monocytes 4.2 % (0.0-10.0); %Neutrophils 84.9 % (42.0-75.0); Hematocrit 37.9 % (36.0-47.0); Hemoglobin 12.2 g/dL (12.0-16.0); Mean Corpuscular HGB CONC 32.2 g/dL (32.0-36.0); Mean Corpuscular Hemoglobin 31.9 pg (27.0-31.0); Mean Corpuscular Volume 99.2 fL (78.0-98.0); Mean Platelet Volume 10.4 fL (7.4-10.4); Platelet Count 89 10x3/uL (130-400); RBC Distribution Width 14.7 % (11.5-14.5); Red Blood Cell (RBC) Count 3.82 mill/uL (4.20-5.40)
[2024-05-17 06:10] LABS: Troponin I 0.043 ng/mL (< 0.028)
[2024-05-17] MEDS: VANCOMYCIN 1.25 GM/250 ML BAG 1.25 GM in Premix 1 BAG IVPB SCH (06:12)
[2024-05-17] MEDS: Albumin 25% 25 GM (100 mL) BOT IVPB SCH (06:13)
[2024-05-17 07:04] LABS: Hematocrit 34.8 % (36.0-47.0); Hemoglobin 11.2 g/dL (12.0-16.0); Mean Corpuscular HGB CONC 32.2 g/dL (32.0-36.0); Mean Corpuscular Hemoglobin 32.5 pg (27.0-31.0); Mean Corpuscular Volume 100.9 fL (78.0-98.0); Platelet Count 82 10x3/uL (130-400); RBC Distribution Width 14.8 % (11.5-14.5); Red Blood Cell (RBC) Count 3.45 mill/uL (4.20-5.40)
[2024-05-17] MEDS ORDERED: Electrolyte Replacement Protocol FS PRN (07:45)
[2024-05-17] MEDS: Potassium Chloride 40 MEQ in Premix 1 BAG IVPB SCH (08:08)
[2024-05-17 08:41] LABS: Actual Bicarbonate (HCO3a) 18.1 mEq/L (22-28); Analyzer IN Cardio ER; Base Excess (BEa) -9.7 mEq/L (-2.0 to +3.0); CO2 Tension 47.6 mmHg (35.0-45.0); Carboxyhemoglobin (COHb) 0.5 gm% (0.0-3.0); Hematocrit-ABG 32 % (36.0-47.0); Hemoglobin (Hb) 10.8 g/dL (12.0-16.0); Potassium - ABG Lab 3.96 mmol/L (3.70-5.30)
[2024-05-17 08:44] LABS: pH, Arterial 7.198 (7.35-7.45)
[2024-05-17 08:45] LABS: O2 Tension (PaO2), arterial 45.8 mmHg (> 80.0); Puncture Site Arterial Line
[2024-05-17 08:56] LABS: Band 42 % (5-11); Burr Cells SLIGHT = 2-5 cells HPF (0-1); Hypochromia SLIGHT = 6-15 cells HPF (0-5); Large Platelets 18.2 % (0-5); Lymphocytes 9 % (21-51); Macrocytosis SLIGHT = 6-15 cells HPF (0-5); Metamyelocyte 10 % (0-0); Monocytes 5 % (0-10); Neutrophil 7 % (42-75); Platelet Adequacy Comment Platelets Decreased; Poikilocytosis MODERATE=16-30 cells HPF (0-5)
[2024-05-17] MEDS ORDERED: Pantoprazole 40 MG VIAL IVP SCH (09:00)
[2024-05-17] MEDS ORDERED: Polyethylene Glycol 3350 17 GM Packet PO SCH (09:00)
[2024-05-17] MEDS: Magnesium 2 GM/50 ML(in water) 2 GM in Premix 1 BAG IVPB SCH (09:01)
[2024-05-17 09:10] LABS: Lactic Acid 4.62 mmol/L (0.50-2.20)
[2024-05-17] MEDS: Sodium Bicarbonate 150 MEQ in Sodium Chloride 0.45% 1,000 ML IV SCH (10:00)
[2024-05-17] MEDS: Potassium Chloride 20 MEQ in Premix 1 BAG IVPB SCH (11:17)
[2024-05-17] MEDS: Polyethylene Glycol 3350 17 GM Packet PER TUBE SCH (11:17)
[2024-05-17] MEDS: Electrolyte Replacement Protocol 1 EACH FS ONE (11:17)
[2024-05-17] MEDS: Furosemide 40 MG (4 mL) VIAL SLOW IVP SCH (11:31)
[2024-05-17] MEDS: Metolazone 5 MG TAB PO SCH (11:31)
[2024-05-17 11:52] LABS: #Basophils Less than 0.03 10x3/uL (0.0-0.2); #Eosinophils Less than 0.03 10x3/uL (0.0-0.7); %Basophils 0.5 % (0.0-1.0); %Lymphocytes 4.2 % (21.0-51.0); %Monocytes 3.7 % (0.0-10.0); %Neutrophils 91.1 % (42.0-75.0); Hematocrit 33.9 % (36.0-47.0); Hemoglobin 11.2 g/dL (12.0-16.0); Mean Corpuscular Hemoglobin 32.5 pg (27.0-31.0); Mean Corpuscular Volume 98.3 fL (78.0-98.0); Platelet Count 55 10x3/uL (130-400); RBC Distribution Width 14.8 % (11.5-14.5); Red Blood Cell (RBC) Count 3.45 mill/uL (4.20-5.40)
[2024-05-17 13:08] LABS: Lactic Acid 5.03 mmol/L (0.50-2.20)
[2024-05-17 14:09] LABS: ALT (SGPT) 19 U/L (Less than 34); AST (SGOT) 56 U/L (11-34); Albumin 2.4 g/dL (3.1-4.5); Alkaline Phosphatase 54 U/L (40-110); Anion Gap 18 mmol/L (10-20); BUN (Urea Nitrogen) 30 mg/dL (9.8-20.1); Bilirubin, Total 0.6 mg/dL (0.3-1.2); Calc. Creatinine Clearance 60 mL/min (70-130); Calcium 7.3 mg/dL (7.8-10.44); Carbon Dioxide 19 mmol/L (23-31); Chloride 104 mmol/L (98-107); Estimated GFR 71; Globulin 1.5 g/dL (2.4-3.5); Glucose 83 mg/dL (80-115); Protein, Total 3.9 g/dL (5.8-8.1); Sodium 135 mmol/L (136-145)
[2024-05-17 16:19] VITALS: TEMP 97.6
[2024-05-17] MEDS: Vasopressin In 0.9 % NaCl 40 UNIT in Premix 1 BAG IV SCH (19:28)
[2024-05-18] MEDS ORDERED: Vancomycin 1 GM in Premix 1 BAG IVPB SCH (06:00)
[2024-05-18] MEDS ORDERED: Polyethylene Glycol 3350 17 GM Packet PER TUBE SCH (09:00)
[2024-05-22] MEDS ORDERED: cloNIDine 0.2mg/24 Hour PATCH TD SCH (09:00)
== END 2024-05-17 19:58 | disposition expired | DRG 207 ==
LOC: ERS 13:51 → ERHOLD 15:35 → IMCU/EMU 18:38 → CCU 23:11
PROVIDERS: ADMIT Internal Medicine; ATTEND Internal Medicine
PROC: 5A1955Z Respiratory Ventilation, Greater than 96 Consecutive Hours (ICD-10-PCS; principal; 2024-05-05)
PROC: 0BH17EZ Insertion of Endotracheal Airway into Trachea, Via Natural or Artificial Opening (ICD-10-PCS; 2024-05-05)
PROC: 0DH67UZ Insertion of Feeding Device into Stomach, Via Natural or Artificial Opening (ICD-10-PCS; 2024-05-05)
PROC: 3E0G76Z Introduction of Nutritional Substance into Upper GI, Via Natural or Artificial Opening (ICD-10-PCS; 2024-05-05)
PROC: 4A133R1 Monitoring of Arterial Saturation, Peripheral, Percutaneous Approach (ICD-10-PCS; 2024-05-09)
PROC: 3E03329 Introduction of Other Anti-infective into Peripheral Vein, Percutaneous Approach (ICD-10-PCS; 2024-05-09)
PROC: 30233J1 Transfusion of Nonautologous Serum Albumin into Peripheral Vein, Percutaneous Approach (ICD-10-PCS; 2024-05-09)
PROC: 3E033XZ Introduction of Vasopressor into Peripheral Vein, Percutaneous Approach (ICD-10-PCS; 2024-05-09)
PROC: 5A09357 Assistance with Respiratory Ventilation, Less than 24 Consecutive Hours, Continuous Positive Airway Pressure (ICD-10-PCS; 2024-05-09)
PROC: 0B968ZZ Drainage of Right Lower Lobe Bronchus, Via Natural or Artificial Opening Endoscopic (ICD-10-PCS; 2024-05-16)
PROC: 02HV33Z Insertion of Infusion Device into Superior Vena Cava, Percutaneous Approach (ICD-10-PCS; 2024-05-16)
PROC: B548ZZA Ultrasonography of Superior Vena Cava, Guidance (ICD-10-PCS; 2024-05-16)
PROC: 03HY32Z Insertion of Monitoring Device into Upper Artery, Percutaneous Approach (ICD-10-PCS; 2024-05-17)
PROC: 4A133B1 Monitoring of Arterial Pressure, Peripheral, Percutaneous Approach (ICD-10-PCS; 2024-05-17)
PROC: 4A133J1 Monitoring of Arterial Pulse, Peripheral, Percutaneous Approach (ICD-10-PCS; 2024-05-17)
DX: J95.851 Ventilator associated pneumonia (principal); A41.9 Sepsis, unspecified organism; I50.33 Acute on chronic diastolic (congestive) heart failure; J96.01 Acute respiratory failure with hypoxia; J96.02 Acute respiratory failure with hypercapnia; R65.21 Severe sepsis with septic shock; J44.1 Chronic obstructive pulmonary disease with (acute) exacerbation; E87.1 Hypo-osmolality and hyponatremia; E87.20 Acidosis, unspecified; K59.31 Toxic megacolon; Z51.5 Encounter for palliative care; Z66 Do not resuscitate; I11.0 Hypertensive heart disease with heart failure; F12.10 Cannabis abuse, uncomplicated; J10.1 Influenza due to other identified influenza virus with other respiratory manifestations; I95.9 Hypotension, unspecified; F17.210 Nicotine dependence, cigarettes, uncomplicated; E78.5 Hyperlipidemia, unspecified; Z88.8 Allergy status to other drugs, medicaments and biological substances; Z79.899 Other long term (current) drug therapy; Z98.890 Other specified postprocedural states; Z91.148 Patient's other noncompliance with medication regimen for other reason; D69.6 Thrombocytopenia, unspecified; D53.9 Nutritional anemia, unspecified; R33.9 Retention of urine, unspecified; I16.0 Hypertensive urgency; R57.1 Hypovolemic shock; E87.6 Hypokalemia
CPT/HCPCS: 36415; 36600; 71045; 74018; 80048; 80053; 80202; 82805; 83605; 83735; 83880; 83930; 83935; 84100; 84145; 84300; 84484; 85025; 85060; 87633; 93005; 93010; 93306; 93970; 94002; 94003; 94640; 94660; 99285; J0360; J0696; J1630; J1650; J1885; J1940; J2060; J2272; J2543; J2704; J2919; J3010; J3370; J3475; J3480; J3490; J7042; J7050; J7070; J7120; J7620; J7626; P9045; P9047